=== PATIENT | female | born 1975 | race Hispanic/Latino ===

== ENCOUNTER 2018-12-17 11:15 | Inpatient (IN) | payer BC ==
[~2018-12-17] VITALS: Ht 157.5 cm; Wt 86.9 kg
[2018-12-17 16:22] VITALS: BP 129/89
[2018-12-17 16:24] LABS: BASOPHILS % (AUTO) 0.7 % (0.0-5.0); EOSINOPHILS % (AUTO) 3.3 % (0.0-8.0); LYMPHOCYTES % (AUTO) 28.4 % (21.0-51.0); MEAN CORPUSCULAR HEMOGLOBIN 29.9 pg (27.0-33.0); MEAN CORPUSCULAR HGB CONC 33.8 g/dL (32.0-36.0); MEAN CORPUSCULAR VOLUME 88.6 fL (79-99); MONOCYTES % (AUTO) 5.9 % (3.0-13.0); NEUTROPHILS % (AUTO) 61.7 % (40.0-77.0); PLATELET COUNT (AUTO) 271 K/uL (130-400); RED BLOOD CELL COUNT(AUTO) 4.28 MIL/uL (4.00-5.50); WHITE BLOOD COUNT (AUTO) 5.1 K/uL (4.8-10.8)
[2018-12-17 16:34] LABS: CREATININE 0.7 mg/dL (0.5-1.5); POTASSIUM 3.7 mmol/L (3.5-5.1)
[2018-12-17] MEDS ORDERED: CETI-101 PO (16:36)
[2018-12-18] VITALS (23 sets, daily range): BP systolic 85–118; BP diastolic 42–80
[2018-12-18] MEDS ORDERED: LIDOCAINE PF 2% 5ML ABBOJECT ONE (07:41)
[2018-12-18] MEDS ORDERED: ONDANSETRON HCL 4 MG/2 ML VIAL ONE ×2 (07:41→10:50)
[2018-12-18] MEDS ORDERED: DEXAMETHASONE SOD PHOSPHATE 10MG/ML 1ML VIAL ONE (07:41)
[2018-12-18] MEDS ORDERED: SUCCINYLCHOLINE 200MG/10ML SYR ONE (07:41)
[2018-12-18] MEDS ORDERED: ROCURONIUM 10MG/1ML SYR 10 MG/ML ML ONE ×2 (07:42→09:59)
[2018-12-18] MEDS ORDERED: NEOSTIGMINE 5MG/5ML SYR IV ONE (07:42)
[2018-12-18] MEDS ORDERED: GLYCOPYRROLATE 1 MG/5 ML SYRINGE ONE (07:42)
[2018-12-18] MEDS ORDERED: PROPOFOL 10 MG/ML 20ML VIAL IV ONE (07:42)
[2018-12-18] MEDS ORDERED: FENTANYL CITRATE PF 50 MCG/1 ML 2ML VIAL ONE ×2 (07:42→11:06)
[2018-12-18] MEDS ORDERED: MIDAZOLAM HCL 1 MG/ML 2ML VIAL ONE (07:42)
[2018-12-18] MEDS ORDERED: CEFAZOLIN SODIUM 1 GM VIAL ONE (07:50)
[2018-12-18] MEDS ORDERED: LACTATED RINGERS 1000ML 1,000 ML IV ONE (08:18)
[2018-12-18] MEDS ORDERED: BUPIVACAINE/PF 0.5% 30ML VIAL ONE (09:26)
[2018-12-18] MEDS ORDERED: OCTYL 2-CYANOACRYLATE 1 EACH TP ONE (09:26)
[2018-12-18] MEDS: LACTATED RINGERS 1000ML 1,000 ML IV SCH ×2 (11:05→23:07)
[2018-12-18] MEDS: CEFAZOLIN SODIUM 1 GM VIAL IVP SCH ×2 (11:15→19:52)
[2018-12-18] MEDS ORDERED: MEPERIDINE-PF 25 MG/ML SYG ONE ×2 (11:25→11:37)
[2018-12-18] MEDS ORDERED: KETOROLAC TROMETHAMINE 30MG/ML ONE (11:47)
[2018-12-18] MEDS: MORPHINE SULFATE 4 MG/1ML SYG IVP PRN ×3 (15:10→23:06)
--- NOTE | 2018-12-18 16:50 | NUR ---
DCP CM met with pt discussed dc plans. Pt is independent prior to surgery, lives at home with spouse. Denies any equipments/services. Pt feels safe to go back home, still works and drives, spouse able to assist with transportation and needs as necessary. DC plan to home once stable. CM to cont to follow up. Addendum: 12/18/18 at 1651 by TAYLOR REINOSO LVN CM Amended: Links added.
[2018-12-18] MEDS: ENOXAPARIN SODIUM 30 MG/0.3 ML SQ SCH (19:53)
[2018-12-18] MEDS: FAMOTIDINE/PF 20 MG/2 ML VIAL IV SCH (19:53)
[2018-12-19] VITALS: BP 106/62
[2018-12-19] MEDS: LACTATED RINGERS 1000ML 1,000 ML IV SCH ×3 (03:05→19:05)
[2018-12-19] MEDS: CEFAZOLIN SODIUM 1 GM VIAL IVP SCH ×3 (03:53→20:08)
[2018-12-19] MEDS: MORPHINE SULFATE 4 MG/1ML SYG IVP PRN ×4 (03:54→21:12)
[2018-12-19 04:00] VITALS: BP 101/61
[2018-12-19 04:17] LABS: BASOPHILS % (AUTO) 0.5 % (0.0-5.0); EOSINOPHILS % (AUTO) 1.4 % (0.0-8.0); HEMATOCRIT 34.5 % (36-48); LYMPHOCYTES % (AUTO) 15.9 % (21.0-51.0); MEAN CORPUSCULAR HEMOGLOBIN 30.3 pg (27.0-33.0); MEAN CORPUSCULAR HGB CONC 34.2 g/dL (32.0-36.0); MEAN CORPUSCULAR VOLUME 88.7 fL (79-99); MONOCYTES % (AUTO) 7.1 % (3.0-13.0); NEUTROPHILS % (AUTO) 75.1 % (40.0-77.0); NUCLEATED RED BLOOD CELLS 0.1 % (0.0-0.19); PLATELET COUNT (AUTO) 215 K/uL (130-400); RED BLOOD CELL COUNT(AUTO) 3.89 MIL/uL (4.00-5.50); WHITE BLOOD COUNT (AUTO) 6.9 K/uL (4.8-10.8)
[2018-12-19 04:35] LABS: CREATININE 0.7 mg/dL (0.5-1.5); POTASSIUM 3.3 mmol/L (3.5-5.1)
[2018-12-19 07:30] VITALS: BP 103/58
[2018-12-19] MEDS: ENOXAPARIN SODIUM 30 MG/0.3 ML SQ SCH ×2 (09:07→20:08)
[2018-12-19] MEDS: FAMOTIDINE/PF 20 MG/2 ML VIAL IV SCH ×2 (09:07→20:08)
[2018-12-19 11:00] VITALS: BP 121/73
--- NOTE | 2018-12-19 15:30 | NUR ---
per patient voiding on own post schuster cath removal
[2018-12-19 16:00] VITALS: BP 118/69
[2018-12-19] MEDS ORDERED: LIDOCAINE HCL-MPF 1% 2ML VIAL IVP PRN (18:00)
[2018-12-19] MEDS ORDERED: POTASSIUM CHLORIDE 20 MEQ ERTAB PO PRN (18:00)
[2018-12-19] MEDS ORDERED: POTASSIUM CHLORIDE 20MEQ/100ML 100 ML IV PRN (18:00)
[2018-12-19] MEDS ORDERED: POTASSIUM CHLORIDE 10% ELIXIR 20 MEQ/15 ML UDCUP PO PRN (18:00)
[2018-12-19 20:00] VITALS: BP 126/80
--- NOTE | 2018-12-19 20:10 | NUR ---
MEDS PT DOSE NOT WANT PO POTASSIUM. AM NURSE HAD STARTED IV POTASSIUM INFUSION PER PT REQUEST ON SLOW DRIP PER PT'S TOLERANCE. DUE MEDS ADMINISTERED, TOLERATED WELL. KEPT COMFORTABLE IN BED. ENCOURAGED TO AMBULATE PT IS BURPING BUT NO PASSAGE OF GAS NOR ANY BM YET AT THIS TIME.
[2018-12-19] MEDS: ONDANSETRON HCL 4 MG/2 ML VIAL IVP PRN (20:46)
--- NOTE | 2018-12-19 20:46 | NUR ---
NAUSEA PT CALLS FOR NAUSEA MEDICATION. CLAIMS OF NAUSEA BUT NO EMESIS. ZOFRAN IV ADMINISTERED. ICE CHIPS PROVIDED. WILL RE-ASSESS PT.
--- NOTE | 2018-12-19 21:12 | NUR ---
PAIN PT AROUND THE FLOOR TWICE AND CALLED FOR PAIN MEDICATION AFTER WALKING. CLAIMS OF PAINS ON HER LOWER BACK AND SURGICAL AREAS. MORPHINE IV ADMINISTERED. KEPT RESTED AND COMFORTABLE IN BED. WILL RE-ASSESS PT.
[2018-12-20] VITALS: BP 118/73
--- NOTE | 2018-12-20 02:00 | NUR ---
ROUNDS PT RESTING WELL. NO DISTRESS NOTED. KEPT UNDISTURBED FOR NOW. CALL LIGHT WITHIN REACH. WILL MONITOR PT.
[2018-12-20] MEDS: LACTATED RINGERS 1000ML 1,000 ML IV SCH ×2 (02:06→12:15)
[2018-12-20] MEDS: CEFAZOLIN SODIUM 1 GM VIAL IVP SCH ×2 (02:49→12:15)
[2018-12-20 04:00] VITALS: BP 117/83
[2018-12-20] MEDS: ACETAMINOPHEN-CODEINE ELIXIR 5 ML UDCUP PO PRN ×2 (04:36→12:28)
[2018-12-20] MEDS: ONDANSETRON HCL 4 MG/2 ML VIAL IVP PRN ×2 (04:43→12:27)
--- NOTE | 2018-12-20 04:43 | NUR ---
NAUSEA PT AWAKENS AND CLAIMS OF ANXIETY. PT CLAIMS OF NOT FEELING GOOD AND NAUSEA. ASSISTED PT TO THE RESTROOM THEN BACK TO BED. CLAIMS OF SX PAINS WITH MOVEMENT. STILL UNABLE TO PASS GAS NOR HAVE ANY BM. PT'S POTASSIUM LEVEL THIS AM=3.4. INITIATED PO POTASSIUM PER PROTOCOL AFTER GIVING PT ZOFRAN FOR NAUSEA. OFFERED TYLENOL #3 ELIXER FOR PAINS, PT AGREED BUT REFUSED AFTER IT WAS OPENED AND CLAIMS TO HAVE A BED SMELL AND WILL NOT BE ABLE TO TOLERATE MED. OFFERED MORPHINE BUT PT DOES NOT LIKE IT SHE CLAIMS IT MAKES HER BOWEL MOTILITY. KEPT COMFORTABLE. WILL RE-ASSESS PT.
--- NOTE | 2018-12-20 05:30 | NUR ---
RE-ASSESS PT IS BACK IN BED, ALREADY ASLEEP WITH RESPIRATIONS EVEN AND UNLABORED. NO NOTED DISTRESS. KEPT UNDISUTRBED FOR NOW. FOR MORE CARE AND MANAGEMENT.
[2018-12-20 08:00] VITALS: BP 134/80
[2018-12-20] MEDS: FAMOTIDINE/PF 20 MG/2 ML VIAL IV SCH (10:22)
[2018-12-20] MEDS: ENOXAPARIN SODIUM 30 MG/0.3 ML SQ SCH (10:22)
--- NOTE | 2018-12-20 11:00 | NUR ---
PATIENT REFUSED MORE POTASSIUM REPLACEMENT FOR HER 3.4. STATED CANNOT TOLERATE THE PILL AND THE LIQUID. STATED SHE ALREADY TOOK A PILL THIS AM AND SHOULD BE ENOUGH .
[2018-12-20 12:29] VITALS: BP 125/81
[2018-12-20 16:00] VITALS: BP 128/78
== END 2018-12-20 17:30 | disposition home or self-care (01) | DRG 328 ==
LOC: EDSTATUS 11:15 → DAHIP 12-18 07:05 → 3DH 12-18 12:41
PROVIDERS: ADMIT Surgery; ATTEND Surgery
PROC: 0DB64ZZ Excision of Stomach, Percutaneous Endoscopic Approach (ICD-10-PCS; principal; 2018-12-18 08:42)
PROC: 0D164ZA Bypass Stomach to Jejunum, Percutaneous Endoscopic Approach (ICD-10-PCS; 2018-12-18 08:42)
DX: K21.9 Gastro-esophageal reflux disease without esophagitis (principal); Z83.3 Family history of diabetes mellitus; Z82.49 Family history of ischemic heart disease and other diseases of the circulatory system; Z82.5 Family history of asthma and other chronic lower respiratory diseases
CPT/HCPCS: 36415; 43235; 80048; 84132; 84703; 85025; 94760; A4218; A4606; G0378; J0330; J0690; J1100; J1650; J1885; J2001; J2175; J2250; J2270; J2405; J2704; J2710; J3010; J3480; J3490; J7030; J7120